=== PATIENT | female | born 1955 ===

== ENCOUNTER 2016-11-03 21:16 | Observation (INO) | payer BC, MEDICAID ==
[2016-11-03 21:17] VITALS: BMI 29.2
--- NOTE | 2016-11-03 22:52 | ED PDOC ---
HPI: Chest Pain Time Seen by Provider: 11/03/16 22:00 Chief Complaint (Nursing): Chest Pain Chief Complaint (Provider): Chest Pain History Per: Patient History/Exam Limitations: no limitations Onset/Duration Of Symptoms: Hrs (x1) Current Symptoms Are (Timing): Better Associated Symptoms: Dyspnea (chronic, no worse than baseline) Additional Complaint(s): Yu Seo is a 61 year old female, with a past medical history inclusive of CAD (s/p IL and subsequent coronary stent placement x2), CHF, HTN ( compliant with aspirin QD), hypercholesterolemia and borderline diabetes, who presents to the ED on 11/03/16 for the evaluation of midsternal chest pain that she had begun to experience as of 1 hour prior to arrival; onset of which was while she was at rest. Pain, initially rated at a 10/10, had been mildly relieved by naprosyn, with patient reporting that upon her arrival in the ED pain has decreased to be rated at a 7/10. An associated headache also reported in addition to some chronic shortness of breath which is described as no worse than usual. Denies fever, diaphoresis, abdominal pain, vomiting or leg swelling. Of note, patient has been previously evaluated within this facility multiple times for similar. Most recent visit to PMD was as of last month, though patient does report having attended physical therapy today. PMD: [facility] Past Medical History Reviewed: Historical Data, Nursing Documentation, Vital Signs Vital Signs: Last Vital Signs Temp 97.9 F 11/03/16 21:29 Pulse 56 L 11/04/16 00:50 Resp 17 11/03/16 21:29 BP 175/75 H 11/03/16 21:29 Pulse Ox 99 11/04/16 00:50 - Medical History PMH: Arthritis, CAD, CHF, Colonic Polyps, Diabetes (borderline, no medications) , Fractures (right wrist 10 years ago), Gastritis, HTN, Hypercholesterolemia, Chronic Pain (legs (especially right)) Denies: Chronic Kidney Disease - Surgical History Surgical History: Coronary Stent (x2), Endoscopy, Denies: Pacemaker Other surgeries: colonoscopy, cardiac catheterization - Family History Family History: States: Unknown Family Hx - Home Medications Home Medications: Ambulatory Orders Medication Instructions Recorded Aspirin [Ecotrin] 81 mg PO DAILY #0 tabec 11/07/15 Atorvastatin [Lipitor] 40 mg PO DAILY #0 tab 11/07/15 Carvedilol [Coreg] 6.25 mg PO BID #0 tab 11/07/15 Clopidogrel [Plavix] 1 tab PO DAILY 06/25/16 Naproxen 1 tab PO PRN PRN 06/25/16 - Allergies Allergies/Adverse Reactions: Allergies Allergy/AdvReac Type Severity Reaction Status Date / Time No Known Allergies Allergy Verified 11/03/16 21:33 Review of Systems ROS Statement: Except As Marked, All Systems Reviewed And Found Negative Constitutional: Negative for: Fever, Sweats Cardiovascular: Positive for: Chest Pain (midsternal). Negative for: Edema Respiratory: Positive for: Shortness of Breath (chronic, no worse than usual) Gastrointestinal: Negative for: Vomiting, Abdominal Pain Musculoskeletal: Positive for: Leg Pain (chronic, especially on right) Physical Exam - Reviewed Nursing Documentation Reviewed: Yes Vital Signs Reviewed: Yes - Physical Exam Appears: Positive for: Non-toxic, No Acute Distress Head Exam: Positive for: ATRAUMATIC, NORMOCEPHALIC Skin: Positive for: Normal Color, Warm, Dry Eye Exam: Positive for: Normal appearance, PERRL ENT: Positive for: Normal ENT Inspection Neck: Positive for: Normal, Painless ROM, Supple Cardiovascular/Chest: Positive for: Regular Rate, Rhythm. Negative for: Murmur Respiratory: Positive for: Normal Breath Sounds. Negative for: Rales, Rhonchi, Wheezing, Respiratory Distress Gastrointestinal/Abdominal: Positive for: Normal Exam, Soft. Negative for: Tenderness Back: Positive for: Normal Inspection Extremity: Positive for: Normal ROM (moving extremities well). Negative for: Swelling Neurologic/Psych: Positive for: Alert, Oriented - Laboratory Results Result Diagrams: 11/03/16 23:25 11/03/16 23:25 - ECG ECG: Positive for: Interpreted By Me, Viewed By Me ECG Rhythm: Positive for: Normal QRS, Normal ST Segment, Sinus Bradycardia. Negative for: ST/T Changes Rate: 56 O2 Sat by Pulse Oximetry: 99 (RA) Pulse Ox Interpretation: Normal (R) Medical Decision Making Medical Decision Makin:32 Initial Impression: chest pain Initial Plan: * EKG * CXR * Labs * Troponin I * Nitroglycerin 0.4mg SL * Reevaluation 0030 Patient will be admitted to [facility] (made aware) who covers for Armas for chest pain in OBS Patient's condition improved with nitro and he received ASA at home. Pt will need admission to obs tele for cardiac monitoring pt agreeable Scribe Attestation: Documented by Alexandra Robertson, acting as a scribe for Giles Cho MD. Provider Scribe Attestation: All medical record entries made by the Scribe were at my direction and personally dictated by me. I have reviewed the chart and agree that the record accurately reflects my personal performance of the history, physical exam, medical decision making, and the department course for this patient. I have also personally directed, reviewed, and agree with the discharge instructions and disposition. Disposition - Clinical Impression Clinical Impression: Chest pain on exertion - Patient ED Disposition Is Patient to be Admitted: Yes Counseled Patient/Family Regarding: Studies Performed, Diagnosis - Disposition Disposition Time: 23:00 Condition: STABLE
[2016-11-03 23:31] LABS: BASO % 0.9 % (0.0-2.0); EOS # 0.2 K/uL (0.0-0.7); LYMPH # 1.7 K/uL (1.0-4.3); LYMPH % 29.5 % (20.0-40.0); MEAN CELL VOLUME 88.5 fl (81.0-99.0); MEAN CORPUSCULAR HGB CONC 32.7 g/dL (33.0-37.0); MEAN PLATELET VOLUME 9.3 fl (7.2-11.7); MONO # 0.5 K/uL (0.0-0.8); MONO % 8.4 % (0.0-10.0); NEUT # 3.3 K/uL (1.8-7.0); NEUT % 58.2 % (50.0-75.0); RED CELL DISTRIBUTION WIDTH 14.1 % (11.5-14.5); WHITE BLOOD COUNT 5.7 K/uL (4.8-10.8)
[2016-11-03 23:43] LABS: ALKALINE PHOSPHATASE 91 U/L (38-126); ALT/SGPT 26 U/L (9-52); AST/SGOT 30 U/L (14-36); BILIRUBIN,TOTAL 0.3 mg/dl (0.2-1.3); BLOOD UREA NITROGEN 22 mg/dl (7-17); CALCIUM 9.6 mg/dL (8.4-10.2); CARBON DIOXIDE 29 mmol/L (22-30); CHLORIDE 99 mmol/L (98-107); GFR AFRICAN-AMERICAN > 60; GLUCOSE,RANDOM 106 mg/dL (65-105); POTASSIUM 4.2 MMOL/L (3.6-5.0); SODIUM 135 mmol/l (132-148); TOTAL PROTEIN 7.5 G/DL (6.3-8.2)
[2016-11-04 06:47] VITALS: RESP 15
--- NOTE | 2016-11-04 06:51 | CP.PCM.HP ---
History of Present Illness - History of Present Illness History of Present Illness: pt admitted for cp. which she denies at present. no f/c, n/v/d. pt has had cp x 18 months. has been admitted nad seen cardio outpt multiple times for same. toprs x 2 negative. ekg sb nut otherwise negative. bun noted to be slightly elevated but pt offers no complaints. pt is compliant w/ meds. Present on Admission - Present on Admission Any Indicators Present on Admission: No Review of Systems - Cardiovascular Cardiovascular: As Per HPI, Chest Pain Past Patient History - Infectious Disease Hx of Infectious Diseases: None - Tetanus Immunizations Tetanus Immunization: Unknown - Past Medical History & Family History Past Medical History?: Yes - Past Social History Smoking Status: Former Smoker - CARDIAC Hx Cardiac Disorders: Yes - PULMONARY Hx Respiratory Disorders: Yes - NEUROLOGICAL Hx Neurological Disorder: No - HEENT Hx HEENT Problems: No - RENAL Hx Chronic Kidney Disease: No - ENDOCRINE/METABOLIC Hx Endocrine Disorders: Yes - HEMATOLOGICAL/ONCOLOGICAL Hx Blood Disorders: Yes - INTEGUMENTARY Hx Dermatological Problems: No - MUSCULOSKELETAL/RHEUMATOLOGICAL Hx Musculoskeletal Disorders: No - GASTROINTESTINAL Hx Gastritis: Yes - GENITOURINARY/GYNECOLOGICAL Hx Genitourinary Disorders: No - PSYCHIATRIC Hx Psychophysiologic Disorder: No - SURGICAL HISTORY Hx Coronary Stent: Yes (x2) - ANESTHESIA Hx Anesthesia: Yes Hx Anesthesia Reactions: No Hx Malignant Hyperthermia: No Has any member of the family had a problem w/ anesthesia?: No Meds Allergies/Adverse Reactions: Allergies Allergy/AdvReac Type Severity Reaction Status Date / Time No Known Allergies Allergy Verified 11/03/16 21:33 Physical Exam - Constitutional Appears: Well, Non-toxic, No Acute Distress - Head Exam Head Exam: ATRAUMATIC, NORMAL INSPECTION, NORMOCEPHALIC - Eye Exam Eye Exam: EOMI, Normal appearance, PERRL Pupil Exam: NORMAL ACCOMODATION, PERRL - ENT Exam ENT Exam: Mucous Membranes Moist, Normal Exam - Neck Exam Neck exam: Positive for: Normal Inspection - Respiratory Exam Respiratory Exam: Clear to Auscultation Bilateral, NORMAL BREATHING PATTERN - Cardiovascular Exam Cardiovascular Exam: REGULAR RHYTHM, RRR, +S1, +S2 - GI/Abdominal Exam GI & Abdominal Exam: Normal Bowel Sounds, Soft. absent: Tenderness - Extremities Exam Extremities exam: Positive for: full ROM, normal capillary refill, normal inspection, pedal pulses present - Back Exam Back exam: NORMAL INSPECTION - Neurological Exam Neurological exam: Alert, CN II-XII Intact, Normal Gait, Oriented x3, Reflexes Normal - Psychiatric Exam Psychiatric exam: Normal Affect, Normal Mood - Skin Skin Exam: Dry, Intact, Normal Color, Warm Results - Vital Signs Recent Vital Signs: Last Vital Signs Temp 97.4 F L 11/04/16 04:10 Pulse 66 11/04/16 06:40 Resp 15 11/04/16 06:40 BP 119/60 11/04/16 04:10 Pulse Ox 96 11/04/16 06:40 - Labs Result Diagrams: 11/04/16 05:30 11/04/16 05:30 Assessment & Plan (1) Chest pain Assessment and Plan: cont asa, plavix trops x 2 negative outpt cardio f/u for dc today as pt wants to be dc before 11am Status: Acute (2) DVT prophylaxis Assessment and Plan: scd nad ae hose asa/plvaix Status: Acute Priority: Medium Decision To Admit - Pt Status Changed To: Hospital Disposition Of: Observation - . Bed Request Type: Telemetry Admitting Physician: Lesa Armas
[2016-11-04 07:08] LABS: HEMATOCRIT 36.2 % (34.0-47.0); MEAN CELL VOLUME 89.2 fl (81.0-99.0); MEAN CORPUSCULAR HEMOGLOBIN 29.3 pg (27.0-31.0); MEAN CORPUSCULAR HGB CONC 32.9 g/dL (33.0-37.0); WHITE BLOOD COUNT 5.1 K/uL (4.8-10.8)
[2016-11-04 07:15] LABS: ALB/GLOB RATIO 1.1 (1.0-2.1); ALKALINE PHOSPHATASE 83 U/L (38-126); ALT/SGPT 24 U/L (9-52); AST/SGOT 26 U/L (14-36); BILIRUBIN,TOTAL 0.5 mg/dl (0.2-1.3); BLOOD UREA NITROGEN 23 mg/dl (7-17); CALCIUM 9.5 mg/dL (8.4-10.2); CARBON DIOXIDE 30 mmol/L (22-30); CHLORIDE 101 mmol/L (98-107); GFR AFRICAN-AMERICAN > 60; GLUCOSE,RANDOM 111 mg/dL (65-105); POTASSIUM 4.4 MMOL/L (3.6-5.0); SODIUM 142 mmol/l (132-148); TOTAL PROTEIN 7.4 G/DL (6.3-8.2)
--- NOTE | 2016-11-04 07:49 | CARD ---
APPROVED REPORT EKG Measurement Heart [id number] <Conclusion> Sinus bradycardia Otherwise normal ECG
[2016-11-04 08:26] VITALS: BP 106/55; PULSE 82; TEMP 97.8; O2SAT 97
--- NOTE | 2016-11-04 08:43 | RAD ---
HISTORY: chest pain COMPARISON: Comparison is made to the previous study dated 04/21/2016 TECHNIQUE: Chest PA and lateral FINDINGS: LUNGS: No active pulmonary disease. PLEURA: No significant pleural effusion identified. No pneumothorax apparent. CARDIOVASCULAR: Normal. OSSEOUS STRUCTURES: No significant abnormalities. VISUALIZED UPPER ABDOMEN: Normal. OTHER FINDINGS: None. IMPRESSION: No active disease.
--- NOTE | 2016-11-04 09:19 | CP.PCM.DIS ---
Provider - Provider Date of Admission: 11/04/16 00:29 Attending physician: Lesa Armas MD Time Spent in preparation of Discharge (in minutes): 15 Hospital Course - Lab Results Lab Results: Most Recent Lab Values WBC 5.1 K/uL (4.8-10.8) 11/04/16 05:30 RBC 4.06 Mil/uL (3.80-5.20) 11/04/16 05:30 Hgb 11.9 g/dL (12.0-16.0) L 11/04/16 05:30 Hct 36.2 % (34.0-47.0) 11/04/16 05:30 MCV 89.2 fl (81.0-99.0) 11/04/16 05:30 MCH 29.3 pg (27.0-31.0) 11/04/16 05:30 MCHC 32.9 g/dL (33.0-37.0) L 11/04/16 05:30 RDW 14.0 % (11.5-14.5) 11/04/16 05:30 Plt Count 241 K/uL (130-400) 11/04/16 05:30 MPV 9.3 fl (7.2-11.7) 11/03/16 23:25 Neut % (Auto) 58.2 % (50.0-75.0) 11/03/16 23:25 Lymph % (Auto) 29.5 % (20.0-40.0) 11/03/16 23:25 [place] % (Auto) 8.4 % (0.0-10.0) 11/03/16 23:25 Eos % (Auto) 3.0 % (0.0-4.0) 11/03/16 23:25 Baso % (Auto) 0.9 % (0.0-2.0) 11/03/16 23:25 Neut # 3.3 K/uL (1.8-7.0) 11/03/16 23:25 Lymph # 1.7 K/uL (1.0-4.3) 11/03/16 23:25 [place] # 0.5 K/uL (0.0-0.8) 11/03/16 23:25 Eos # 0.2 K/uL (0.0-0.7) 11/03/16 23:25 Baso # 0.0 K/uL (0.0-0.2) 11/03/16 23:25 Sodium 142 mmol/l (132-148) 11/04/16 05:30 Potassium 4.4 MMOL/L (3.6-5.0) 11/04/16 05:30 Chloride 101 mmol/L (98-107) 11/04/16 05:30 Carbon Dioxide 30 mmol/L (22-30) 11/04/16 05:30 Anion Gap 15 (10-20) 11/04/16 05:30 BUN 23 mg/dl (7-17) H 11/04/16 05:30 Creatinine 1.1 mg/dL (0.7-1.2) 11/04/16 05:30 Est GFR ( Amer) > 60 11/04/16 05:30 Est GFR (Non-Af Amer) 50 11/04/16 05:30 Random Glucose 111 mg/dL (65-105) H 11/04/16 05:30 Calcium 9.5 mg/dL (8.4-10.2) 11/04/16 05:30 Total Bilirubin 0.5 mg/dl (0.2-1.3) 11/04/16 05:30 AST 26 U/L (14-36) 11/04/16 05:30 ALT 24 U/L (9-52) 11/04/16 05:30 Alkaline Phosphatase 83 U/L (38-126) 11/04/16 05:30 Troponin I < 0.0120 ng/mL (0.00-0.120) 11/04/16 05:30 Total Protein 7.4 G/DL (6.3-8.2) 11/04/16 05:30 Albumin 3.8 g/dL (3.5-5.0) 11/04/16 05:30 Globulin 3.6 gm/dL (2.2-3.9) 11/04/16 05:30 Albumin/Globulin Ratio 1.1 (1.0-2.1) 11/04/16 05:30 Discharge Exam - Head Exam Head Exam: ATRAUMATIC, NORMOCEPHALIC Discharge Plan - Follow Up Plan Condition: STABLE Disposition: HOME/ ROUTINE Additional Instructions: final dx-noncardiac cp trops x 2 negative spoke w/ dr mart who stated that pt can f/u out pt has appt w/ [facility] m rted prn
== END 2016-11-04 10:00 | disposition home or self-care (01) ==
LOC: H.ER 21:16 → H.ERHOLD 11-04 00:29 → H.ICU/CCU 11-04 04:02
PROVIDERS: ADMIT Family Medicine; ATTEND Family Medicine
DX: R07.89 Other chest pain (principal); E78.00 Pure hypercholesterolemia, unspecified; I11.0 Hypertensive heart disease with heart failure; I25.10 Atherosclerotic heart disease of native coronary artery without angina pectoris; Z95.5 Presence of coronary angioplasty implant and graft; I25.2 Old myocardial infarction; I50.9 Heart failure, unspecified; R73.03 Prediabetes; K29.70 Gastritis, unspecified, without bleeding; G89.29 Other chronic pain; M19.90 Unspecified osteoarthritis, unspecified site
CPT/HCPCS: 71020; 80053; 84484; 85025; 85027; 87081; 93005; 99281; G0378

== ENCOUNTER 2017-04-01 18:29 | Emergency (ER) | payer BC ==
[2017-04-01 18:30] VITALS: BMI 29.2
[2017-04-01 18:49] VITALS: TEMP 97.9
[2017-04-01 20:08] LABS: BASO # 0.1 K/uL (0.0-0.2); EOS # 0.1 K/uL (0.0-0.7); EOS % 2.6 % (0.0-4.0); HEMATOCRIT 36.5 % (34.0-47.0); LYMPH # 2.1 K/uL (1.0-4.3); LYMPH % 39.6 % (20.0-40.0); MEAN CELL VOLUME 90.2 fl (81.0-99.0); MEAN CORPUSCULAR HEMOGLOBIN 29.2 pg (27.0-31.0); MEAN CORPUSCULAR HGB CONC 32.4 g/dL (33.0-37.0); MEAN PLATELET VOLUME 8.8 fl (7.2-11.7); MONO # 0.4 K/uL (0.0-0.8); MONO % 6.8 % (0.0-10.0); NEUT # 2.6 K/uL (1.8-7.0); RED CELL DISTRIBUTION WIDTH 14.2 % (11.5-14.5); WHITE BLOOD COUNT 5.3 K/uL (4.8-10.8)
--- NOTE | 2017-04-01 20:22 | ED PDOC ---
HPI: Chest Pain Time Seen by Provider: 04/01/17 19:23 Chief Complaint (Nursing): Chest Pain Chief Complaint (Provider): Chest Pain History Per: Patient History/Exam Limitations: no limitations Onset/Duration Of Symptoms: Days (x1) Current Symptoms Are (Timing): Still Present Additional Complaint(s): Yu Seo is a 61 year old female with previous medical history of CAD and hypertension, who presents to the emergency department with a complaint of chest pain worsened with exertion radiating from back pain ongoing for 1 day. Denied fever, chills, nausea, vomiting, sweats, cough and shortness of breath. Of note, patient has been seen multiple times in ED for similar symptoms with negative work-ups. PMD: none provided Past Medical History Reviewed: Historical Data, Nursing Documentation, Vital Signs Vital Signs: Last Vital Signs Temp 97.9 F 04/01/17 18:45 Pulse 100 H 04/01/17 18:45 Resp 20 04/01/17 18:45 BP 158/54 H 04/01/17 18:45 Pulse Ox 98 04/02/17 00:27 - Medical History PMH: Anxiety, Arthritis, Back Problems, CAD, CHF, Colonic Polyps, Diabetes ( borderline, no medications), Fractures (right wrist 10 years ago), Gastritis, HTN, Hypercholesterolemia, Hyperlipidemia, Chronic Pain (legs (especially right) ) Denies: Chronic Kidney Disease - Surgical History Surgical History: Coronary Stent (x2), Endoscopy, Denies: Pacemaker - Family History Family History: States: Unknown Family Hx - Social History Current smoker - smoking cessation education provided: No Ex-Smoker (has not smoked in the last 12 months): Yes Alcohol: None Drugs: Denies - Home Medications Home Medications: Ambulatory Orders Medication Instructions Recorded Aspirin [Ecotrin] 81 mg PO DAILY #0 tabec 11/07/15 Atorvastatin [Lipitor] 40 mg PO DAILY #0 tab 11/07/15 Carvedilol [Coreg] 6.25 mg PO BID #0 tab 11/07/15 Clopidogrel [Plavix] 1 tab PO DAILY 06/25/16 Naproxen 1 tab PO PRN PRN 06/25/16 Cyclobenzaprine [Cyclobenzaprine 10 mg PO TID PRN #15 tab 04/02/17 HCl] - Allergies Allergies/Adverse Reactions: Allergies Allergy/AdvReac Type Severity Reaction Status Date / Time No Known Allergies Allergy Verified 04/01/17 18:45 Review of Systems ROS Statement: Except As Marked, All Systems Reviewed And Found Negative Constitutional: Negative for: Fever, Chills, Sweats Cardiovascular: Positive for: Chest Pain Respiratory: Negative for: Cough, Shortness of Breath Gastrointestinal: Negative for: Nausea, Vomiting Musculoskeletal: Positive for: Back Pain Physical Exam - Reviewed Nursing Documentation Reviewed: Yes Vital Signs Reviewed: Yes - Physical Exam Appears: Positive for: Well, Non-toxic, No Acute Distress Head Exam: Positive for: ATRAUMATIC, NORMAL INSPECTION, NORMOCEPHALIC Neck: Positive for: Normal, Painless ROM, Supple. Negative for: Decreased ROM Cardiovascular/Chest: Positive for: Regular Rate, Rhythm, Chest Non Tender Respiratory: Positive for: Normal Breath Sounds, Accessory Muscle Use. Negative for: Decreased Breath Sounds, Crackles, Rales, Rhonchi, Wheezing, Respiratory Distress Gastrointestinal/Abdominal: Positive for: Normal Exam, Bowel Sounds, Soft. Negative for: Tenderness Back: Positive for: Other (left infrascapular tenderness). Negative for: Normal Inspection Extremity: Positive for: Normal ROM. Negative for: Tenderness, Pedal Edema, Deformity Neurologic/Psych: Positive for: Alert, Oriented - Laboratory Results Result Diagrams: 04/01/17 20:04 04/01/17 20:04 - ECG O2 Sat by Pulse Oximetry: 98 (RA) Pulse Ox Interpretation: Normal Medical Decision Making Medical Decision Making: Initial Impression: Posterior back pain radiating to chest Initial Plan: * EKG * CMP * Troponin I * CBC * PTT * PT * Flexeril 10mg PO * Toradol 10mg IV Time: 22:00 Clinical Impression: Non cardiac chest pain, muscle spasm --Labs reviewed with no clinically significant abnormalities --Patient reports improvement in symptoms and is stable for discharge --Instructed to follow up with PMD in 2 days Scribe Attestation: Documented by Sary Contreras and Luis Eduardo Nelson, acting as a scribe for Teddy Pfeiffer MD. Provider Scribe Attestation: All medical record entries made by the Scribe were at my direction and personally dictated by me. I have reviewed the chart and agree that the record accurately reflects my personal performance of the history, physical exam, medical decision making, and the department course for this patient. I have also personally directed, reviewed, and agree with the discharge instructions and disposition. Disposition - Clinical Impression Clinical Impression: Atypical chest pain - Patient ED Disposition Is Patient to be Admitted: No Counseled Patient/Family Regarding: Studies Performed, Diagnosis, Need For Followup - Disposition Disposition: Routine/Home Disposition Time: 22:00 Condition: STABLE Prescriptions: Cyclobenzaprine [Cyclobenzaprine HCl] 10 mg PO TID PRN #15 tab PRN Reason: back pain Instructions: Noncardiac Chest Pain (ED) Forms: [employer] (Tajik)
[2017-04-01 20:30] LABS: ALB/GLOB RATIO 1.3 (1.0-2.1); ALKALINE PHOSPHATASE 82 U/L (38-126); ALT/SGPT 29 U/L (9-52); AST/SGOT 24 U/L (14-36); BILIRUBIN,TOTAL 0.5 mg/dl (0.2-1.3); BLOOD UREA NITROGEN 17 mg/dl (7-17); CALCIUM 9.2 mg/dL (8.4-10.2); CARBON DIOXIDE 28 mmol/L (22-30); CHLORIDE 105 mmol/L (98-107); GFR AFRICAN-AMERICAN > 60; GLUCOSE,RANDOM 100 mg/dL (65-105); POTASSIUM 3.9 MMOL/L (3.6-5.0); SODIUM 144 mmol/l (132-148); TOTAL PROTEIN 7.7 G/DL (6.3-8.2)
[2017-04-01 20:58] LABS: PARTIAL THROMBOPLASTIN TIME 38.3 Seconds (25.6-37.1)
[2017-04-02 00:43] VITALS: BP 126/65; PULSE 60; RESP 18; O2SAT 99
--- NOTE | 2017-04-02 09:01 | RAD ---
HISTORY: chest pain COMPARISON: No prior. TECHNIQUE: Chest PA and lateral FINDINGS: LUNGS: No active pulmonary disease. PLEURA: No significant pleural effusion identified. No pneumothorax apparent. CARDIOVASCULAR: Normal. OSSEOUS STRUCTURES: No significant abnormalities. VISUALIZED UPPER ABDOMEN: Normal. OTHER FINDINGS: None. IMPRESSION: No active disease.
--- NOTE | 2017-04-02 13:31 | CARD ---
APPROVED REPORT EKG Measurement Heart [id number] <Conclusion> Normal sinus rhythm Normal ECG
== END 2017-04-02 00:35 | disposition home or self-care (01) ==
LOC: H.ER 18:29
DX: R07.89 Other chest pain (principal); F41.9 Anxiety disorder, unspecified; I10 Essential (primary) hypertension; I25.10 Atherosclerotic heart disease of native coronary artery without angina pectoris; Z79.82 Long term (current) use of aspirin; Z95.5 Presence of coronary angioplasty implant and graft
CPT/HCPCS: 71020; 80053; 84484; 85025; 85610; 85730; 93005; 96374; 99283; J1885

== ENCOUNTER 2017-06-11 19:43 | Emergency (ER) | payer BC ==
[2017-06-11 19:44] VITALS: BMI 29.2
[2017-06-11 19:55] VITALS: PULSE 67; RESP 18; TEMP 98.1; O2SAT 97
[2017-06-11] MEDS ORDERED: Lidocaine 5% Patch TD STA (20:31)
[2017-06-11] MEDS ORDERED: Lidocaine 5% Patch TD ONE (20:40)
--- NOTE | 2017-06-11 21:47 | ED PDOC ---
Upper Extremity Pain/Injury Time Seen by Provider: 06/11/17 19:56 Chief Complaint (Nursing): Upper Extremity Problem/Injury Chief Complaint (Provider): LEFT shoulder pain Past Medical History Vital Signs: Last Vital Signs Temp 98.1 F 06/11/17 19:54 Pulse 67 06/11/17 19:54 Resp 18 06/11/17 19:54 BP 162/54 H 06/11/17 19:54 Pulse Ox 97 06/11/17 19:54 - Medical History PMH: Anxiety, Arthritis, Back Problems, CAD, CHF, Colonic Polyps, Diabetes ( borderline, no medications), Fractures (right wrist 10 years ago), Gastritis, HTN, Hypercholesterolemia, Hyperlipidemia, Chronic Pain (legs (especially right) ) Denies: Chronic Kidney Disease - Surgical History Surgical History: Coronary Stent (x2), Endoscopy, Denies: Pacemaker - Family History Family History: States: Unknown Family Hx - Home Medications Home Medications: Ambulatory Orders Medication Instructions Recorded Aspirin [Ecotrin] 81 mg PO DAILY #0 tabec 11/07/15 Atorvastatin [Lipitor] 40 mg PO DAILY #0 tab 11/07/15 Carvedilol [Coreg] 6.25 mg PO BID #0 tab 11/07/15 Clopidogrel [Plavix] 1 tab PO DAILY 06/25/16 Naproxen 1 tab PO PRN PRN 06/25/16 Cyclobenzaprine [Cyclobenzaprine 10 mg PO TID PRN #15 tab 04/02/17 HCl] Naproxen [Naprosyn] 500 mg PO Q12 #14 tab 04/02/17 Lidocaine 5% [Lidoderm] 1 ea TD DAILY PRN #30 patch 06/11/17 traMADol [Ultram] 50 mg PO TID PRN #15 tab 06/11/17 - Allergies Allergies/Adverse Reactions: Allergies Allergy/AdvReac Type Severity Reaction Status Date / Time No Known Allergies Allergy Verified 04/01/17 18:45 - ECG O2 Sat by Pulse Oximetry: 97 Disposition - Clinical Impression Clinical Impression: Shoulder pain Counseled Patient/Family Regarding: Studies Performed, Diagnosis, Need For Followup, Rx Given - Disposition Referrals: Vlad Rey MD [Staff Provider] - 06/13/17 Disposition: Routine/Home Disposition Time: 21:00 Condition: IMPROVED Prescriptions: Lidocaine 5% [Lidoderm] 1 ea TD DAILY PRN #30 patch PRN Reason: PAIN traMADol [Ultram] 50 mg PO TID PRN #15 tab PRN Reason: Pain, Severe (8-10) Instructions: Shoulder Pain (ED)
[2017-06-11 22:02] VITALS: BP 139/71
--- NOTE | 2017-06-12 15:08 | RAD ---
PROCEDURE: Radiographs of the Left Shoulder HISTORY: LEFT shoulder pain COMPARISON: No prior. FINDINGS: BONES: No evidence of acute displaced fracture nor dislocation. JOINTS: Glenohumeral and acromioclavicular joints preserved. There is mild joint space narrowing left acromioclavicular joint otherwise no significant osteoarthritis. SOFT TISSUES: Normal. OTHER FINDINGS: None. IMPRESSION: No evidence of acute displaced fracture nor dislocation.
== END 2017-06-11 22:02 | disposition home or self-care (01) ==
LOC: H.ER 19:43
DX: M25.512 Pain in left shoulder (principal); Z95.5 Presence of coronary angioplasty implant and graft
CPT/HCPCS: 73030; 96372; 99283; J1885